=== PATIENT | female | born 1995 | race Caucasian/White ===

== ENCOUNTER 2023-01-09 17:52 | Outpatient (CLI) | payer OTHER, SELFPAY | END 2023-01-09 17:53 | disposition home or self-care (01) | PROVIDERS: Visit Provider Registered Nurse | DX: Z01.419 Encounter for gynecological examination (general) (routine) without abnormal findings (principal); E04.1 Nontoxic single thyroid nodule; N92.0 Excessive and frequent menstruation with regular cycle; Z13.6 Encounter for screening for cardiovascular disorders; Z13.1 Encounter for screening for diabetes mellitus | CPT/HCPCS: 80061; 82947; 84443 ==

== ENCOUNTER 2023-01-11 16:47 | Outpatient (CLI) | payer OTHER, SELFPAY ==
--- NOTE | 2023-01-11 17:00 | CRLHL7_ITS ---
For Patients: As a result of the Century Cures Act, medical imaging exams and procedure reports are released immediately into your electronic medical record. You may view this report before your referring provider. If you have questions, please contact your health care provider. INDICATION: Menorrhagia COMPARISON: none TECHNIQUE: 2D steward scale and color Doppler images were acquired of the pelvis using a transabdominal and transvaginal approach. FINDINGS: Sonographic images demonstrate a normal size and smooth outer contour of the uterus. Uterus measures 11.2 cm in length by 5.1 cm in AP diameter by 5.7 cm in transverse dimension. The myometrium has a normal uniform echotexture. The endometrial lining appears normal and measures 5 mm in composite thickness. The right ovary measures 4.2 x 3.0 x 3.2 cm in size and the left ovary measures 4.2 x 1.6 x 3.0 cm. There is a simple left parovarian cyst measuring 4.0 x 3.1 x 3.7 cm. Dominant follicle right ovary measuring approximately 2 cm. The ovaries demonstrate normal arterial and venous blood flow on color Doppler analysis. There are no suspicious fluid collections within the cul-de-sac. IMPRESSION: Endometrial thickness 5 millimeters. No endometrial fluid or uterine fibroid. Simple left paraovarian cyst measuring 4.0 cm. Dictated by Praneeth Lowery MD @ 01/12/2023 11:31:17 AM (Electronically Signed)
== END 2023-01-11 16:48 | disposition home or self-care (01) ==
LOC: US 16:47
PROVIDERS: Visit Provider Registered Nurse
DX: N92.0 Excessive and frequent menstruation with regular cycle (principal); R93.89 Abnormal findings on diagnostic imaging of other specified body structures; N83.202 Unspecified ovarian cyst, left side
CPT/HCPCS: 76830; 76856

== ENCOUNTER 2024-03-21 08:29 | Outpatient (CLI) | payer BC, SELFPAY | END 2024-03-21 08:30 | disposition home or self-care (01) | PROVIDERS: Visit Provider Registered Nurse | DX: R10.9 Unspecified abdominal pain (principal); R11.2 Nausea with vomiting, unspecified | CPT/HCPCS: 80053; 83690; 86140 ==

== ENCOUNTER 2025-01-26 13:01 | Outpatient (CLI) | payer OTHER, SELFPAY | END 2025-01-26 13:02 | disposition home or self-care (01) | PROVIDERS: PCP Registered Nurse; Visit Provider Registered Nurse | DX: R10.9 Unspecified abdominal pain (principal); R11.10 Vomiting, unspecified | CPT/HCPCS: 80053; 83690 ==

== ENCOUNTER 2025-02-12 08:03 | Outpatient (CLI) | payer OTHER, SELFPAY ==
--- NOTE | 2025-02-12 09:36 | P.ANES_ITS ---
Anesthesia Charges Start Date/Time Anesthesia Start Date: 02/12/25 Anesthesia Start Time: :22 Stop Date/Time Anesthesia Stop Date: 02/12/25 Anesthesia Stop Time: 09:34 Coding CPT Codes CPT Codes: ANES UPR GI NDSC PX NOS - 83309 ([id number]) P2 - PATIENT W/MILD SYST DISEASE, QX - GRINDING ROOM INSPECTOR SVC W/ MD MED DIRECTION, QK - PIPE COVERER 2-4 CNCRNT ANES PROC
--- NOTE | 2025-02-12 09:36 | P.ANES_ITS ---
Anesthesia Charges Start Date/Time Anesthesia Start Date: 02/12/25 Anesthesia Start Time: :22 Stop Date/Time Anesthesia Stop Date: 02/12/25 Anesthesia Stop Time: 09:34 Coding CPT Codes CPT Codes: ANES UPR GI NDSC PX NOS - 40082 ([id number]) QK - CASE AIDE 2-4 CNCRNT ANES PROC, QX - CIRCULAR SAW FILER SVC W/ MD MED DIRECTION, P2 - PATIENT W/MILD SYST DISEASE
--- NOTE | 2025-02-12 09:36 | W.ANESCHARGE ---
Anesthesia Charges Start Date/Time Anesthesia Start Date: 02/12/25 Anesthesia Start Time: :22 Stop Date/Time Anesthesia Stop Date: 02/12/25 Anesthesia Stop Time: 09:34 Coding CPT Codes CPT Codes: ANES UPR GI NDSC PX NOS - 56809 ([id number]) P2 - PATIENT W/MILD SYST DISEASE, QX - FOUNTAIN SUPERVISOR SVC W/ MD MED DIRECTION, QK - SHOE POLISHER 2-4 CNCRNT ANES PROC
--- NOTE | 2025-02-12 09:36 | W.ANESCHARGE ---
Anesthesia Charges Start Date/Time Anesthesia Start Date: 02/12/25 Anesthesia Start Time: :22 Stop Date/Time Anesthesia Stop Date: 02/12/25 Anesthesia Stop Time: 09:34 Coding CPT Codes CPT Codes: ANES UPR GI NDSC PX NOS - 48358 ([id number]) QK - SUPERINTENDENT CUSTODIAN JANITOR 2-4 CNCRNT ANES PROC, QX - SLITTER SCORER CUT OFF OPERATOR SVC W/ MD MED DIRECTION, P2 - PATIENT W/MILD SYST DISEASE
== END 2025-02-12 08:04 | disposition home or self-care (01) ==
PROVIDERS: PCP Registered Nurse; Visit Provider Surgery
DX: R10.13 Epigastric pain (principal); K92.2 Gastrointestinal hemorrhage, unspecified
CPT/HCPCS: 00731; 43239; 88305; J2704; J3010